=== PATIENT | male | born 1960 | race Caucasian/White ===

== ENCOUNTER 2022-04-27 00:29 | Emergency (ER) | payer OTHER ==
[~2022-04-27] VITALS: Ht 190.5 cm; Wt 120.2 kg
[2022-04-27] MEDS ORDERED: ROSUVASTATIN CA20 MG PO (00:44)
[2022-04-27] MEDS ORDERED: LISINOPRIL-HCT1 EACH PO (00:44)
[2022-04-27 01:06] LABS: Albumin, Blood 3.6 g/dL (3.4-5.0); Albumin/Globulin Ratio 1.2 (0.8-1.8); Bilirubin, Total 0.7 mg/dL (0.1-1.0); Bun/Creatinine Ratio 23.3 (12.0-20.0); Calcium, Blood 9.2 mg/dL (8.5-10.1); Creatinine, Blood 0.86 mg/dL (0.60-1.20); Globulin, Blood 3.1 g/dL (2.2-4.0); Potassium, Blood 3.5 mmol/L (3.5-5.5); Total Protein, Blood 6.7 g/dL (6.4-8.2)
[2022-04-27 01:11] LABS: BASOPHILS ABSOLUTE AUTO 0.07 K/mm3 (0.00-0.23); BASOPHILS PERCENT AUTO 1 % (0-2); EOSINOPHILS PERCENT AUTO 1 % (0-6); Hematocrit 42.9 % (37.0-53.0); Hemoglobin 15.1 g/dL (13.5-17.5); IMMATURE GRAN ABSOLUTE AUTO 0.05 K/mm3 (0.00-0.10); IMMATURE GRAN PERCENT AUTO 0 % (0-1); LYMPHOCYTES ABSOLUTE AUTO 2.04 K/mm3 (0.84-5.20); LYMPHOCYTES PERCENT AUTO 14 % (21-46); MONOCYTES ABSOLUTE AUTO 0.94 K/mm3 (0.16-1.47); MONOCYTES PERCENT AUTO 6 % (4-13); Mean Corpuscular HGB Conc 35.2 g/dL (31.5-36.5); Mean Corpuscular Volume 85 fL (80-100); Mean Platelet Volume 9.4 fL (9.1-12.4); NEUTROPHILS ABSOLUTE AUTO 11.47 K/mm3 (1.96-9.15); NEUTROPHILS PERCENT AUTO 78 % (41-73); Platelet Count 228 K/mm3 (150-400); RDW Coefficient Variation 12.6 % (11.7-14.2); Red Blood Cell Count 5.03 M/mm3 (4.30-5.90); White Blood Cell Count 14.77 K/mm3 (4.00-11.30)
[2022-04-27] MEDS ORDERED: HYDR1TAB94 PO (02:50)
[2022-04-27] MEDS ORDERED: ONDA4ODT MM (02:50)
[2022-04-27] MEDS ORDERED: IBUP800 PO (02:50)
== END 2022-04-27 03:01 | disposition home or self-care (01) ==
LOC: ER 00:29
PROVIDERS: Emergency Medicine
DX: K80.50 Calculus of bile duct without cholangitis or cholecystitis without obstruction (principal); R11.2 Nausea with vomiting, unspecified; I10 Essential (primary) hypertension; Z79.899 Other long term (current) drug therapy
CPT/HCPCS: 80053; 83690; 85025; 93005; 93010; J1885; J2270; J2405

== ENCOUNTER 2022-06-02 07:57 | Day surgery (SDC) | payer OTHER ==
[~2022-06-02] VITALS: Ht 190.5 cm; Wt 112.7 kg
[~2022-06-02 07:57] MED LIST: HYDR1TAB94 PO; IBUP800 PO; LISINOPRIL-HCT1 EACH PO; ONDA4ODT MM; ROSUVASTATIN CA20 MG PO
--- NOTE | 2022-06-02 09:07 | NUR ---
Ambulatory in Day Surgery History, Chart, Medications and Allergies reviewed before start of procedure. Lungs clear T/O to Auscultation. Pre-Op teaching done. Pt verbalizes understanding. Patient States Post-Procedure ride home has been arranged.
--- NOTE | 2022-06-02 12:12 | NUR ---
RECIEVED PATIENT INTO STEP VSS PATIENT GROGGY FQALLS ASLEEP EASILY. DOES STATE SOME NAUSEA BUT GETTING BETTER AFTER MEDICATION. DENIES PAIN AT THIS TIME.
--- NOTE | 2022-06-02 13:57 | NUR ---
Discharge instructions reviewed with patient. Patient verbalizes understanding. Copy given to patient to take home. Patient States Post-Procedure ride home has been arranged. Discharged via wheelchair to private car for ride home.
== END 2022-06-02 13:58 | disposition home or self-care (01) ==
LOC: ORSCMMR 07:57 → ORD 10:00 → ORSCMMR 13:58
PROVIDERS: Surgery
PROC: 0FT44ZZ Resection of Gallbladder, Percutaneous Endoscopic Approach (ICD-10-PCS; principal; 2022-06-02 09:30)
PROC: BF031ZZ Plain Radiography of Gallbladder and Bile Ducts using Low Osmolar Contrast (ICD-10-PCS; principal; 2022-06-02 09:30)
DX: K80.10 Calculus of gallbladder with chronic cholecystitis without obstruction (principal); E78.5 Hyperlipidemia, unspecified; I10 Essential (primary) hypertension; R73.03 Prediabetes; Z79.899 Other long term (current) drug therapy
CPT/HCPCS: 74300; 88304; A9270; C1729; J0690; J1100; J1885; J2250; J2405; J2550; J2704; J2765; J2795; J3010; J7120

== ENCOUNTER 2025-10-16 13:09 | Day surgery (SDC) | payer OTHER ==
[~2025-10-16] VITALS: Ht 185.4 cm; Wt 102.7 kg
[2025-10-16] VITALS (16 sets, daily range): BP systolic 94–119; BP diastolic 64–83
[~2025-10-16 13:09] MED LIST changes: +MEMA10 PO; +MULVITA PO
--- NOTE | 2025-10-16 14:08 | NUR ---
Ambulatory in Day Surgery. Pre-Op teaching done. Pt verbalizes understanding. History, Chart, Medications and Allergies reviewed before start of procedure. Patient STATES HE DRANK A BOTTLE OF WATER AND FINISHED IT AT 1300. DR. JACKSON AND SEDATION NURSE NOTIFIED. PATIENT INFORMED WE WILL NEED TO WAIT UNTIL 1500 TO COMPLETE HIS PROCEDURE DUE TO DRINKING WATER. PATIENT AGREES WITH PLAN. Patient States Post-Procedure ride home has been arranged.
--- NOTE | 2025-10-16 15:04 | NUR ---
10/16/25 [facility] CONFIRMED AND REVIEWED H&P, MEDCICATIONS, ALLERGIES, MEDICAL HISTORY, RESPIRATORY HISTORY, VITAL SIGNS, 3-LEAD EKG, CONSENTS, AND PHYSICIAN ORDERS. PATIENT CONFIRMS NPO STATUS AND AGREES WITH SCHEDULED PROCEDURE. MONITOR INTACT WITH CONTINUOUS PULSE OXIMETRY, CAPNOGRAPHY, 3-LEAD EKG, INTERMITTENT BP. SUPPLEMENTAL O2 TO BE TITRATED THROUGHOUT PROCEDURE TO MAINTAIN O2 SATURATION ABOVE 90%. PATIENT DETERMINED TO BE ASA APPROPRIATE FOR PROPOFOL SEDATION PRIOR TO START OF PROCEDURE BY DR. JACKSON.
== END 2025-10-16 15:50 | disposition home or self-care (01) ==
LOC: ORSCMMR 13:09 → ORD 14:15 → ORSCMMR 14:15
PROVIDERS: Surgery
PROC: 0DBN8ZX Excision of Sigmoid Colon, Via Natural or Artificial Opening Endoscopic, Diagnostic (ICD-10-PCS; principal; 2025-10-16 14:15)
PROC: 0DBK8ZX Excision of Ascending Colon, Via Natural or Artificial Opening Endoscopic, Diagnostic (ICD-10-PCS; principal; 2025-10-16 14:15)
DX: Z12.11 Encounter for screening for malignant neoplasm of colon (principal); D12.2 Benign neoplasm of ascending colon; D12.5 Benign neoplasm of sigmoid colon; Z86.0101 Personal history of adenomatous and serrated colon polyps; I10 Essential (primary) hypertension; E78.5 Hyperlipidemia, unspecified; R73.03 Prediabetes; Z79.899 Other long term (current) drug therapy
CPT/HCPCS: 88305; J2704; J7120